=== PATIENT | female | born 1945 | race Caucasian/White ===

== ENCOUNTER 2016-12-06 20:45 | Inpatient (IN) | payer MEDICARE, OTHER ==
[~2016-12-06] VITALS: Ht 175.3 cm; Wt 91.6 kg
[~2016-12-06 20:45] MED LIST: ALBU8.5H5 INH; AMOX1TAB12 PO; CYCL-259 PO; FLUT1DIS3 INH; FOLI-17 PO; GLIP5TAB10 PO; HYDR12.53 PO; HYDR12.547 PO; IPRA12.9 INH; LISI-167 PO; LORA1TAB PO; METF10002 PO; MORP15TA PO; OXYC15TA PO; PARO40TA3 PO; PRAV20TA2 PO; PRED50TA PO; PRED5TAB PO; PREG50CA PO
[2016-12-06] MEDS ORDERED: ACETAMINOPHEN 650 MG SUPP PR ONE (21:00)
[2016-12-06] MEDS ORDERED: PIPERACILLIN/TAZO/PMX 4.5GM 100 ML IVPB ONE (21:00)
[2016-12-06] MEDS ORDERED: SODIUM CHLORIDE 0.9% 1,000ML IVBOLUS ONE ×2 (21:00)
[2016-12-06] MEDS ORDERED: VANCOMYCIN PER PHARMACY MC ONE (21:00)
[2016-12-06] MEDS ORDERED: ACETAMINOPHEN 325 MG TABLET PO ONE (21:00)
[2016-12-06] MEDS ORDERED: ACETAMINOPHEN 650 MG SUPP ONE (21:08)
[2016-12-06] MEDS ORDERED: PRAV20TA2 PO (21:30)
[2016-12-06] MEDS ORDERED: METF500T4 PO (21:30)
[2016-12-06] MEDS ORDERED: IPRA12.9 INH (21:30)
[2016-12-06] MEDS ORDERED: LISI-170 PO (21:30)
[2016-12-06] MEDS ORDERED: VANCOMYCIN 1,800 MG in SODIUM CHLORIDE 0.9% 250 ML IV ONE (21:30)
[2016-12-06] MEDS ORDERED: CYCL-259 PO (21:30)
[2016-12-06] MEDS ORDERED: GLIP10TA13 PO (21:30)
[2016-12-06] MEDS ORDERED: PARO40TA3 PO (21:30)
[2016-12-06] MEDS ORDERED: HYDR12.53 PO (21:30)
[2016-12-06] MEDS ORDERED: OXYC15TA PO (21:30)
[2016-12-06] MEDS ORDERED: PLEASE ENTER ALLERGIES MC SCH ×2 (21:30)
[2016-12-06] MEDS ORDERED: LORA1TAB PO (21:30)
[2016-12-06] MEDS ORDERED: CALC0.25 PO (21:30)
[2016-12-06] MEDS ORDERED: OXYGEN INH (21:30)
[2016-12-06] MEDS ORDERED: HYDR25TA11 PO (21:30)
[2016-12-06] MEDS ORDERED: FURO20TA3 PO (21:30)
[2016-12-06] MEDS ORDERED: MORP100T16 PO (21:30)
[2016-12-06] MEDS ORDERED: LORazepam 2 MG/ML, 1ML ONE (21:35)
[2016-12-06] MEDS ORDERED: LORazepam 2 MG/ML, 1ML IVPush ONE ×2 (22:00)
[2016-12-06 22:26] LABS: HEMATOCRIT 30.8 % (34.6-47.8); HEMOGLOBIN 10.3 g/dL (11.7-16.4); WHITE BLOOD COUNT 10.9 x10^3/uL (3.4-10)
[2016-12-06 22:38] LABS: BLOOD UREA NITROGEN 29 mg/dL (7-18)
[2016-12-06 22:41] LABS: ASPARTATE AMINO TRANSFERASE 15 U/L (15-37)
[2016-12-06] MEDS ORDERED: SODIUM CHLORIDE 0.9% 1,000 ML IV SCH (23:17)
[2016-12-06] MEDS ORDERED: DEXTROSE 4 GM TAB.CHEW PO PRN (23:30)
[2016-12-06] MEDS ORDERED: PHARMACY MAY ADJ FOR RENAL FX MC SCH (23:30)
[2016-12-06] MEDS ORDERED: ACETAMINOPHEN 325 MG TABLET PO PRN (23:30)
[2016-12-06] MEDS ORDERED: PHARMACY MAY ADJ FOR RENAL FX MC PRN (23:30)
[2016-12-06] MEDS ORDERED: INSULIN ASPART 100 UNITS/ML, PEN SQ-INSULIN SCH (23:30)
[2016-12-06] MEDS ORDERED: DEXTROSE 50%, 50ML SYRINGE IVPush PRN (23:30)
[2016-12-06] MEDS ORDERED: GLUCAGON 1 MG IM PRN (23:30)
[2016-12-06] MEDS ORDERED: VANCOMYCIN PER PHARMACY MC PRN (23:30)
[2016-12-06] MEDS ORDERED: SODIUM CHLORIDE 0.9% 1,000ML IV ONE (23:30)
[2016-12-06] MEDS: [UNRECOGNIZED DRUG - OTHER] MC SCH (23:45)
[2016-12-06] MEDS ORDERED: PHARMACOKINETIC MONITORING MC PRN (23:45)
[2016-12-07 00:33] VITALS: BP 133/60
[2016-12-07] MEDS: PIPERACILLIN/TAZO/PMX 3.375GM 50 ML IV SCH ×3 (02:09→17:43)
[2016-12-07] MEDS: SODIUM CHLORIDE 0.9% 1,000 ML IV SCH ×3 (02:09→21:28)
[2016-12-07] MEDS: SODIUM CHLORIDE FLUSH 10ML SYR IVF SCH ×3 (02:10→21:00)
[2016-12-07] MEDS: INSULIN REGULAR 100 UNITS/ML, 3ML VIAL SQ-INSULIN SCH ×5 (03:24→21:29)
[2016-12-07] MEDS: HEPARIN 5,000 UNITS/ML, 1ML SQ SCH ×3 (03:24→21:29)
[2016-12-07 05:13] LABS: HEMATOCRIT 28.8 % (34.6-47.8); HEMOGLOBIN 9.6 g/dL (11.7-16.4); WHITE BLOOD COUNT 8.8 x10^3/uL (3.4-10)
[2016-12-07 05:33] LABS: ASPARTATE AMINO TRANSFERASE 15 U/L (15-37); BLOOD UREA NITROGEN 28 mg/dL (7-18)
[2016-12-07] MEDS: [UNRECOGNIZED DRUG - OTHER] MC SCH ×3 (07:45→23:45)
[2016-12-07 08:24] VITALS: BP 191/115
[2016-12-07] MEDS ORDERED: CALCITRIOL 0.25 MCG CAPSULE PO SCH (09:00)
[2016-12-07] MEDS ORDERED: ACETAMINOPHEN 650 MG SUPP PR ONE (10:30)
[2016-12-07] MEDS ORDERED: LABETALOL 5MG/ML, 20ML IVPush ONE (10:30)
[2016-12-07] MEDS ORDERED: LABETALOL 5MG/ML, 20ML IVPush PRN (12:00)
[2016-12-07] MEDS ORDERED: NALOXONE 0.4 MG/ML, 1ML IVPush ONE (12:00)
[2016-12-07] MEDS ORDERED: PAROXETINE 20 MG TABLET PO SCH (12:25)
[2016-12-07 14:00] VITALS: BP 143/74
[2016-12-07] MEDS ORDERED: ALBUTEROL/IPRATROPIUM 2.5MG/0.5MG, 3 ML NPPB PRN (16:00)
[2016-12-07] MEDS: ONDANSETRON 2MG/ML, 2ML IV PRN (17:43)
[2016-12-07 19:02] VITALS: BP 185/77
[2016-12-07 19:45] VITALS: BP 164/91
[2016-12-07] MEDS ORDERED: LISINOPRIL 20 MG TABLET PO SCH (21:00)
[2016-12-07] MEDS ORDERED: VANCOMYCIN 1,800 MG in SODIUM CHLORIDE 0.9% 250 ML IV SCH (22:00)
[2016-12-08 00:19] VITALS: BP 153/90
[2016-12-08] MEDS ORDERED: DIPHENHYDRAMINE 25 MG CAPSULE PO ONE (00:30)
[2016-12-08 01:22] VITALS: BP 171/70
[2016-12-08 02:41] VITALS: BP 179/91
[2016-12-08] MEDS: PIPERACILLIN/TAZO/PMX 3.375GM 50 ML IV SCH (02:44)
[2016-12-08] MEDS: SODIUM CHLORIDE 0.9% 1,000 ML IV SCH (02:44)
[2016-12-08] MEDS: ONDANSETRON 2MG/ML, 2ML IV PRN (02:44)
[2016-12-08] MEDS ORDERED: HYDROCHLOROTHIAZIDE 12.5 MG CAPSULE PO SCH ×2 (09:00)
[2016-12-08] MEDS ORDERED: FUROSEMIDE 20 MG TABLET PO SCH (09:00)
== END 2016-12-08 05:48 | disposition left against medical advice (07) | DRG 871 ==
LOC: ED 22:20 → MERGE 22:20 → EDIP 23:02 → 4WST 12-07 00:10
PROVIDERS: ADMIT Internal Medicine; ATTEND Internal Medicine
DX: A41.9 Sepsis, unspecified organism (principal); G93.41 Metabolic encephalopathy; J15.9 Unspecified bacterial pneumonia; J44.0 Chronic obstructive pulmonary disease with (acute) lower respiratory infection; E11.9 Type 2 diabetes mellitus without complications; J84.10 Pulmonary fibrosis, unspecified; Z99.81 Dependence on supplemental oxygen; F11.20 Opioid dependence, uncomplicated; N12 Tubulo-interstitial nephritis, not specified as acute or chronic; Z53.21 Procedure and treatment not carried out due to patient leaving prior to being seen by health care provider; E78.5 Hyperlipidemia, unspecified; G89.4 Chronic pain syndrome; I10 Essential (primary) hypertension; K90.0 Celiac disease; R65.20 Severe sepsis without septic shock; Z91.19 Patient's noncompliance with other medical treatment and regimen; Z90.710 Acquired absence of both cervix and uterus; Z79.52 Long term (current) use of systemic steroids; Z87.891 Personal history of nicotine dependence; Z90.49 Acquired absence of other specified parts of digestive tract
CPT/HCPCS: 36415; 70450; 71010; 80053; 81001; 82962; 83605; 84145; 85025; 85610; 87040; 87077; 87086; 87186; 93005; 96365; 96366; 96375; J1644; J1815; J2310; J2405; J2543; J3370; J2060; J7030; J7050; Q0163